=== PATIENT | female | born 1975 | race Caucasian/White ===

== ENCOUNTER 2024-06-02 12:17 | Inpatient (IN) | payer BC, SELFPAY ==
[2024-05-31 18:00] VITALS: BP 165/103
[2024-05-31 19:03] LABS: COVID-19 Antigen Negative (Negative)
[2024-05-31 19:38] VITALS: BMI 42.1
[2024-05-31 19:47] VITALS: BP 149/94
--- NOTE | 2024-05-31 20:09 | ED.GENMED ---
History of Present Illness
General
Chief Complaint: Fever
Source: patient
Exam Limitations: none
Time Seen by Provider: 05/31/24 19:52
History of Present Illness
History of Present Illness:
48-year-old female presents complaining of myalgias fatigue and fever since 3 days ago. Yesterday she noted redness starting around her right lower leg and since then its gotten worse. Her temperature at home has been as high as 102. She denies
cough or runny nose. She is not a diabetic. She was vomiting at the onset of her symptoms but has not been since but does note slight nausea and decreased appetite. No other complaints at this time
Past History
Past History
ED Past Medical History: Other (Kidney stone)
ED Past Surgical History:
Social History
Personal:
Phy Exam
Physical Exam
Physical Exam:
General: Well-appearing female no acute respiratory distress
HEENT: Normocephalic atraumatic
Heart: Tachycardic but regular
Lungs: Clear no wheeze
Abdomen is soft nontender nondistended
Skin: Erythema noted to the right lower leg ranging from the proximal to distal jaquez nearly circumferential. This is hot to the touch and tender without underlying fluctuance. No drainage noted.
Vascular: Palpable pulses dorsal aspect bilateral feet
Neurologic: Good sensation bilateral legs
Course
Orders/Labs/Results
Orders:
Orders
05/31/24 18:07
Electrocardiogram (*1) Urgent
Reason for Study: Shortness of Breath
05/31/24 18:08
EKG- Treatment ONCE
05/31/24 18:29
COVID-19 Antigen Urgent
Source: Nasal Swab
Influenza A+B Rapid Molecular Urgent
BRONSON Source: Nasal Swab
Specimen Description:
05/31/24 20:02
0.9% Sodium Chloride 1000 ml [Nss] 1,000 ml IV BOLUS
Venous Doppler Lwr Ext Rt [US Periph Venous LOWER Ext RT] Urgent
Comment:
Reason For Exam: swelling
05/31/24 20:37
Complete Blood Count/With Diff Urgent
Comprehensive Metabolic Panel Urgent
Lactic Acid Q4H
Comment: CANCEL 2nd LACTIC ACID IF 1st LACTIC ACID IS LESS THAN 2
Troponin I Urgent
Blood Culture Q30M
BRONSON Source: Blood/Venous
Specimen Description:
05/31/24 20:45
Blood Culture Q30M
BRONSON Source: Blood/Venous
Specimen Description:
05/31/24 21:18
CeFAZolin 2 grams IV Push NOW CeFAZolin 2 GRAM [Ancef] 2 grams in 10 ml IV NOW
06/01/24 00:15
Lactic Acid Q4H
Comment: CANCEL 2nd LACTIC ACID IF 1st LACTIC ACID IS LESS THAN 2
Abnormal Lab Results
05/31/24
20:37
WBC 14.1 H 10^3/uL
(4.8-10.8)
MCH 32.6 H pg
(27.0-31.0)
Abs Immat Gran (auto) 0.1 H 10^3/uL
(0-0.05)
Absolute Neuts (auto) 11.8 H 10^3/uL
(1.4-6.5)
Absolute Monos (auto) 0.9 H 10^3/uL
(0.1-0.6)
Immature Gran % 0.7 H %
(0-0.5)
Neutrophils % 83.4 H %
(42.2-75.2)
Lymphocytes % 9.2 L %
(20.5-51.1)
Sodium 131 L mmol/L
(135-145)
Chloride 96 L mmol/L
(98-107)
Carbon Dioxide 18 L mmol/L
(22-30)
Glucose 112 H mg/dl
(70-99)
Total Bilirubin 1.4 H mg/dl
(0.2-1.3)
05/31/24 20:37
05/31/24 20:37
Vital Signs
Initial and Last Documented VS:
Initial Vital Signs
Temp Pulse Resp BP Pulse Ox
99 F 118 26 165/103 99
05/31/24 18:00 05/31/24 18:00 05/31/24 18:00 05/31/24 18:00 05/31/24 18:00
Last Documented Vital Signs
Temp Pulse Resp BP Pulse Ox
99 F 102 31 149/94 96
05/31/24 18:00 05/31/24 19:47 05/31/24 19:47 05/31/24 19:47 05/31/24 19:38
MDM/Problems Addressed
Differential Diagnosis Includes:
Patient with fever myalgias and pain and redness to the right lower leg. Exam most consistent with cellulitis. Other items in differential could include DVT to the right leg venous ultrasound is pending. No palpable abscess.
Patient is tachycardic and she endorses a fever at home. Will check labs. Fluids ordered.
*Critical Care Note
Total Time (30-74mins, 75-104mins- exclusive of procedures): Not Applicable
Update Note
Update Note:
Labs reviewed shows white count of 14,000 venous ultrasound negative for DVT. Patient given fluids Ancef ordered. She is meeting SIRS criteria given fever leukocytosis and tachycardia. Will keep in hospital
ED Attending Note
-
Portions of this chart may have been created with voice recognition software.� Occasional wrong word or��sound alike� substitutions may have occurred due to the inherent limitations of voice recognition software.
Discharge Plan
Departure
Patient Disposition: Admit
Date of Disposition: 05/31/24
Time of Disposition: 21:18
Presentation/result/management discussed w/ accepting MD/DO: Hospitalist
Discharge Problem:
Acute cellulitis
Prescriptions:
No Action
oxycodone-acetaminophen 5 MG/325 MG tablet
1 tab PO Q4HPRN PRN (Reason: pain) Qty: 15 0RF
tamsulosin 0.4 MG capsule
0.4 mg PO DAILY Qty: 5 0RF
indomethacin 50 MG capsule
50 mg PO TID Qty: 15 1RF
Rx Instructions:
take with food
Interventions
Interventions:
*Risk Screen - Suicide Last Done: 05/31/24 18:00
*General Assessment Last Done: 05/31/24 18:00
*Neglect/Abuse Screening Last Done: 05/31/24 18:00
ED- Fall Risk Assessment Last Done: 05/31/24 19:38
*ED COVID-19 Vaccine History Last Done: 05/31/24 18:00
ED- Neurological Assessment Last Done: 05/31/24 19:38
ED-Skin Assessment Last Done: 05/31/24 19:38
Discharge Date and Time
Print Language: AMHARIC
[2024-05-31 20:45] LABS: % Basophils 0.2 % (0-2); % Eosinophils 0.1 % (0-6); % Immature Granulocytes 0.7 % (0-0.5); % Lymphocytes 9.2 % (20.5-51.1); % Monocytes 6.4 % (1.7-9.3); % Neutrophils 83.4 % (42.2-75.2); Absolute Immature Granulocytes 0.1 10^3/uL (0-0.05); Absolute Lymphocytes 1.3 10^3/uL (1.2-3.4); Absolute Monocytes 0.9 10^3/uL (0.1-0.6); Absolute Neutrophils 11.8 10^3/uL (1.4-6.5); Hematocrit 43.6 % (37.0-47.0); Hemoglobin 15.4 g/dL (12.0-16.0); Mean Corp Hgb Conc. 35.3 g/dL (33.0-37.0); Mean Corpuscular Hgb 32.6 pg (27.0-31.0); Mean Corpuscular Volume 92.4 fL (81.0-99.0); Mean Platelet Volume 10.3 fL (7.4-10.4); Nucleated Red Blood Cells % 0 %; Platelet Count 233 10^3/uL (130-400); Red Blood Cell Count 4.72 10^6/uL (4.20-5.40); Red Cell Dist. Width 12.3 % (11.5-14.5); White Blood Cell Count 14.1 10^3/uL (4.8-10.8)
[2024-05-31 20:57] LABS: Lactic Acid 1.3 mmol/L (0.7-2.0)
[2024-05-31 20:58] LABS: ALT (SGPT) 33 U/L (0-35); AST (SGOT) 27 U/L (14-36); Albumin 4.5 g/dl (3.5-5.0); Alkaline Phosphatase 107 U/L (38-126); Blood Urea Nitrogen 16 mg/dl (7-17); Calcium 9.5 mg/dl (8.4-10.2); Carbon Dioxide 18 mmol/L (22-30); Chloride 96 mmol/L (98-107); Estimated Creatinine Clearance 105 ml/min; Glucose 112 mg/dl (70-99); Potassium 3.6 mmol/L (3.5-5.1); Sodium 131 mmol/L (135-145); Total Bilirubin 1.4 mg/dl (0.2-1.3); Total Protein 7.8 g/dl (6.3-8.2); eGFR > 60.00
[2024-05-31 21:09] LABS: Troponin I < 0.012 ng/ml
[2024-05-31] MEDS: NSS 1000 IV (21:13)
[2024-05-31] MEDS: ANCEF 10 IV (21:36)
--- NOTE | 2024-05-31 22:21 | HPS.HSE ---
Addendum entered and electronically signed by Jesse Paul DO 05/31/24 23:58:
Patient seen and examined independently. Agree with findings and plan as set forth by MARIALUISA James.
Patient is a 48y F with PMH significant for obesity who presents to ED complaining of pain, swelling and redness in the RLE that she noted this AM. Patient states that she had fevers / chills and general malaise starting on Saturday. She denies
any injury, trauma, etc to the RLE. Patient noted some pain in the R lower leg last PM while in bed and this AM woke to note new redness and swelling. She presented to the ED for further evaluation. She does have very dry, cracked skin on both
feet with a sizeable skin defect at the base of the R great toe.
Ass:
RLE Cellulitis
Obesity
Plan:
Admit for further evaluation and treatment.
Continue IV Ancef and follow for clinical improvement.
Transition to PO regimen once improving.
Local care to feet / dry skin to prevent future episodes.
Original Note:
Family Physician
-
Family Physician: Angus Alberts
Chief Complaint
-
right lower leg swelling
History of Present Illness
Patient is a 48-year-old female with past medical history significant for hx kidney stone who presented to [facility] ED for evaluation of right lower leg swelling associated with fever. Patient reports Saturday she started not feeling well
and had muscle aches and fever. Over last two days she reports fever as high as 102. She did have associated nausea and vomiting. Patient stated last night when she was sleeping last night she woke with some discomfort in right leg, but did not look
at leg until today that has significant erythema, warm to touch and swollen. Patient denies cough, shortness of breath, chest pain, constipation, diarrhea or urinary symptoms.
Medical History
Past Medical History
Past Medical History: Reports Other
Additional Past Medical History:
hx kidney stone
Past Surgical History: Reports Other
Additional Past Surgical History:
lithotripsy
Social History
Tobacco: Smoker (smokes when out with friends )
Alcohol: Occasional
Drug: Marijuana (will use gummies occasionally )
Personal:
Living: With Family
Employment: Employed
Family History
Family History: Other (Mother: DM; Father: DM)
Allergies / Home Medications
Allergies reflects when Allergies were last updated in [facility].
Home Medications with original date entered in [facility]
Allergy/Medication List:
Allergies
Allergy/AdvReac Type Severity Reaction Status Date / Time
No Known Drug Allergies Allergy NONE Verified 12/12/11 03:48
Home Medications
[id number] carb-vit K 18 mg iron-400 mcg-500 mg tablet 1 tab PO DAILY 05/31/24
Review of Systems
-
History Source: Patient
Constitutional: Reports Fever
EENT: Reports No Symptoms
Respiratory: Reports No Symptoms
Cardiac: Reports No Symptoms
Abdomen/GI: Reports Nausea and Vomiting
: Reports No Symptoms
Musculoskeletal: Reports Other (RLE edema, erythema and warmth )
Skin: Reports No Symptoms
Neurological: Reports No Symptoms
Endocrine: Reports No Symptoms
Hematologic/Lymphatic: Reports No Symptoms
Psych: Reports No Symptoms
Physical Exam
Vital Signs
Vital Signs
Temp Pulse Resp BP Pulse Ox
99 F 102 31 149/94 96
05/31/24 18:00 05/31/24 19:47 05/31/24 19:47 05/31/24 19:47 05/31/24 19:38
Physical Exam
General: Well Developed, Well Nourished, No Apparent Distress, Comfortable, Conversant and Morbidly Obese
HEENT: NormoCephalic, Moist mucous membranes, Atraumatic, Sonoita Conjunctivae, Nose Appears Normal and Ears Appear Normal
Respiratory: Clear and Non Labored Respirations
Cardiac: S1/S2 and Regular Rhythm; No Murmur, Rub or Gallop
Breast: Deferred by me
GI: Soft, Non Tender and Normal Bowel Sounds; No Organomegaly
Rectal: Deferred by Provider
Genito-urinary: Deferred by me
Musculoskeletal: No Clubbing, No Cyanosis and Edema, Right Lower Extremity (associated with erythema and warm to touch )
Skin: No Rash
Neuro: Nonfocal/grossly intact
Psych: Calm and Intact Judgment/Insight
Laboratory Results
-
05/31/24 20:37
05/31/24 20:37
Laboratory Results
Lactic Acid 1.3 mmol/L (0.7-2.0) 05/31/24 20:37
Total Bilirubin 1.4 mg/dl (0.2-1.3) H 05/31/24 20:37
AST 27 U/L (14-36) 05/31/24 20:37
ALT 33 U/L (0-35) 05/31/24 20:37
Alkaline Phosphatase 107 U/L (38-126) 05/31/24 20:37
Troponin I < 0.012 ng/ml 05/31/24 20:37
Data Reviewed
-
Ultrasound: Report Reviewed by me (RLE: No sonographic evidence for right lower extremity deep venous thrombosis.)
Medical Tests (Nuc Med, Echo, EKG etc): Report Reviewed by me (EKG: SINUS TACHYCARDIA RIGHTWARD AXIS)
Lab Data: Labs Reviewed by me (WBC 14.1)
Impression/Plan
-
IMPRESSION/PLAN:
#cellulitis
WBC 14.1
RLE US: No sonographic evidence for right lower extremity deep venous thrombosis.
EKG: SINUS TACHYCARDIA
RIGHTWARD AXIS
Covid: negative
Influenza: negative
Blood Cx: pending
- Admit to med/surg
- IV antibiotics
- supportive care
#obesity
BMI 42.1
- affects all aspects of care
- encourage a balanced diet and increased exercise for goal of weight loss
#hx kidney stone
s/p lithotripsy
Code status: full code
DVT prophylaxis: lovenox sq
[2024-05-31 23:55] VITALS: BP 144/73
[2024-06-01 02:46] VITALS: BP 152/86; BMI 41.5
[2024-06-01] MEDS: TYLENOL 650 MG PO ×2 (03:42→14:38)
[2024-06-01] MEDS: ANCEF 10 IV ×3 (05:51→22:00)
[2024-06-01 07:14] LABS: Hematocrit 39.9 % (37.0-47.0); Mean Corp Hgb Conc. 35.1 g/dL (33.0-37.0); Mean Corpuscular Hgb 32.9 pg (27.0-31.0); Mean Corpuscular Volume 93.7 fL (81.0-99.0); Platelet Count 199 10^3/uL (130-400); Red Blood Cell Count 4.26 10^6/uL (4.20-5.40); Red Cell Dist. Width 12.5 % (11.5-14.5); White Blood Cell Count 12.4 10^3/uL (4.8-10.8)
[2024-06-01 07:16] VITALS: BP 136/81
[2024-06-01 07:57] LABS: Blood Urea Nitrogen 14 mg/dl (7-17); Calcium 8.8 mg/dl (8.4-10.2); Carbon Dioxide 17 mmol/L (22-30); Chloride 104 mmol/L (98-107); Estimated Creatinine Clearance 119 ml/min; Glucose 113 mg/dl (70-99); Potassium 3.3 mmol/L (3.5-5.1); Sodium 132 mmol/L (135-145); eGFR > 60.00
[2024-06-01] MEDS: THERAGRAN 1 TABLET PO (08:29)
--- NOTE | 2024-06-01 08:54 | W.PN.HOSP.TC ---
Today's Communication/Plan
-
IV antibiotic
Assessment / Plan
Assessment / Plan
Physical exam:
General: Well Developed, Well Nourished and No Apparent Distress
HEENT: Normocephalic, Atraumatic and Moist Mucous Membranes
Respiratory: Clear to Auscultation; Negative Wheezes, Rales or Rhonchi
Cardiac: Regular Rhythm and S1/S2
GI: Soft, Nontender and Nondistended
Musculoskeletal: No Clubbing, No Cyanosis
Skin: Right lower extremity erythema, warmth, tenderness
Neuro: Awake, Alert and Oriented
Psych: Calm
A/P:
Right lower extremity cellulitis:
Continue IV antibiotic
Blood cultures no growth
Elevate lower extremity
Tinea pedis:
Antifungal cream
Obesity:
Lifestyle changes modification
DVT prophylaxis:
Lovenox SQ
CODE STATUS:
Full code
Anticipated Discharge: 24 - 48 hours
Subjective/Interval History
-
Date of Service: June 01, 2024
Patient with erythema right lower extremity and discomfort.
Objective Data
-
Labs:
Laboratory Results
05/31/24 06/01/24
20:37 06:51
WBC 12.4 H
Hgb 14.0
Hct 39.9
Plt Count 199
Sodium 131 L 132 L
Potassium 3.6 3.3 L
Chloride 96 L 104
Carbon Dioxide 18 L 17 L
BUN 16 14
Creatinine 0.8 0.7
Glucose 112 H 113 H
Calcium 9.5 8.8
Total Bilirubin 1.4 H
AST 27
ALT 33
Alkaline Phosphatase 107
Vital Signs:
Vital Signs
Temp Pulse Resp BP Pulse Ox
98.7 F 76 16 136/81 97
06/01/24 07:16 06/01/24 07:16 06/01/24 07:16 06/01/24 07:16 06/01/24 07:16
I&O
05/31/24 06/01/24 06/02/24
06:59 06:59 06:59
Intake Total 0 / 0
Balance 0 / 0
[2024-06-01] MEDS: KCL 40 MEQ PO (09:15)
[2024-06-01] MEDS: LOTRIMIN 1% CREAM 1 APPLIC TOPICAL ×2 (11:04→22:00)
--- NOTE | 2024-06-01 11:39 | CM ---
Pt seen bedside. Initial assessment completed. Admitted for right lower leg swelling.
Pt reports that she lives w/ spouse and daughter in a 3 story town home- 2 small steps to enter. Pt is independent w/ ambulating and ADLs, no DME required. 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
No SNF/VN/PT hx. No current OP or home services at this time.
Address, point of contact and insurance verified
PCP: Dr. Angus Alberts
Pharmacy: [facility]
Pt is admitted as OBS, OOBS form reviewed, pt given copy, copy placed on chart
Plan: Home; no needs likely
[2024-06-01 15:56] VITALS: BP 137/79
[2024-06-01] MEDS: LOVENOX 40 MG SC (17:49)
[2024-06-01] MEDS: FLUSH (NSS) 2 FLUSH IV (22:01)
[2024-06-01 23:00] VITALS: BP 157/86
[2024-06-02] MEDS: ANCEF 10 IV ×3 (05:40→22:00)
[2024-06-02] MEDS: FLUSH (NSS) 2 FLUSH IV (05:40)
[2024-06-02 07:55] LABS: % Basophils 0.4 % (0-2); % Eosinophils 0.7 % (0-6); % Immature Granulocytes 0.7 % (0-0.5); % Lymphocytes 10.6 % (20.5-51.1); % Monocytes 9.9 % (1.7-9.3); % Neutrophils 77.7 % (42.2-75.2); Absolute Basophils 0.1 10^3/uL (0-0.2); Absolute Eosinophils 0.1 10^3/uL (0-0.7); Absolute Immature Granulocytes 0.1 10^3/uL (0-0.05); Absolute Lymphocytes 1.5 10^3/uL (1.2-3.4); Absolute Monocytes 1.4 10^3/uL (0.1-0.6); Hematocrit 40.7 % (37.0-47.0); Hemoglobin 13.9 g/dL (12.0-16.0); Mean Corp Hgb Conc. 34.2 g/dL (33.0-37.0); Mean Corpuscular Hgb 32.8 pg (27.0-31.0); Mean Platelet Volume 9.9 fL (7.4-10.4); Nucleated Red Blood Cells % 0 %; Platelet Count 243 10^3/uL (130-400); Red Blood Cell Count 4.24 10^6/uL (4.20-5.40); Red Cell Dist. Width 12.8 % (11.5-14.5); White Blood Cell Count 14.1 10^3/uL (4.8-10.8)
[2024-06-02 08:13] VITALS: BP 163/98
[2024-06-02 08:38] LABS: Blood Urea Nitrogen 16 mg/dl (7-17); Calcium 9.1 mg/dl (8.4-10.2); Carbon Dioxide 17 mmol/L (22-30); Chloride 103 mmol/L (98-107); Estimated Creatinine Clearance > 125 ml/min; Glucose 102 mg/dl (70-99); Potassium 3.6 mmol/L (3.5-5.1); Sodium 135 mmol/L (135-145); eGFR > 60.00
--- NOTE | 2024-06-02 08:51 | W.PN.HOSP.TC ---
Today's Communication/Plan
-
IV antibiotic
Assessment / Plan
Assessment / Plan
Physical exam:
General: Well Developed, Well Nourished and No Apparent Distress
HEENT: Normocephalic, Atraumatic and Moist Mucous Membranes
Respiratory: Clear to Auscultation; Negative Wheezes, Rales or Rhonchi
Cardiac: Regular Rhythm and S1/S2
GI: Soft, Nontender and Nondistended
Musculoskeletal: No Clubbing, No Cyanosis
Skin: Right lower extremity erythema, warmth, tenderness
Neuro: Awake, Alert and Oriented
Psych: Calm
A/P:
Right lower extremity cellulitis:
Continue IV antibiotics-needs more time to start seeing progress
Blood cultures no growth
Wild erythema today
Doppler negative for DVT
Elevate lower extremity
Tinea pedis:
Antifungal cream
Obesity:
Lifestyle changes modification
DVT prophylaxis:
Lovenox SQ
CODE STATUS:
Full code
Anticipated Discharge: > 48 hours
Subjective/Interval History
-
Date of Service: June 02, 2024
Patient erythema yet to see any improvement. Still warm and tender on her right leg. Afebrile
Objective Data
-
Labs:
Laboratory Results
06/02/24
07:23
WBC 14.1 H
Hgb 13.9
Hct 40.7
Plt Count 243 D
Sodium 135
Potassium 3.6
Chloride 103
Carbon Dioxide 17 L
BUN 16
Creatinine 0.5 L
Glucose 102 H
Calcium 9.1
Vital Signs:
Vital Signs
Temp Pulse Resp BP Pulse Ox
97.7 F 78 18 163/98 98
06/02/24 08:13 06/02/24 08:13 06/02/24 08:13 06/02/24 08:13 06/02/24 08:13
I&O
06/01/24 06/02/24 06/03/24
06:59 06:59 06:59
Intake Total 0 / 0 480 / 480
Balance 0 / 0 480 / 480
[2024-06-02] MEDS: THERAGRAN 1 TABLET PO (09:30)
[2024-06-02] MEDS: LOTRIMIN 1% CREAM 1 APPLIC TOPICAL ×2 (09:30→20:53)
[2024-06-02 16:08] VITALS: BP 138/84
[2024-06-02] MEDS: LOVENOX 40 MG SC (18:32)
[2024-06-02] MEDS: TYLENOL 650 MG PO (20:54)
[2024-06-02 23:10] VITALS: BP 148/81
[2024-06-03] MEDS: ANCEF 10 IV ×3 (05:51→20:21)
[2024-06-03 07:27] VITALS: BP 145/86
[2024-06-03 07:36] LABS: % Basophils 0.3 % (0-2); % Eosinophils 2.4 % (0-6); % Immature Granulocytes 0.9 % (0-0.5); % Lymphocytes 11.5 % (20.5-51.1); % Neutrophils 76.9 % (42.2-75.2); Absolute Eosinophils 0.3 10^3/uL (0-0.7); Absolute Immature Granulocytes 0.1 10^3/uL (0-0.05); Absolute Lymphocytes 1.5 10^3/uL (1.2-3.4); Hematocrit 39.1 % (37.0-47.0); Hemoglobin 13.6 g/dL (12.0-16.0); Mean Corp Hgb Conc. 34.8 g/dL (33.0-37.0); Mean Corpuscular Hgb 32.9 pg (27.0-31.0); Mean Corpuscular Volume 94.7 fL (81.0-99.0); Mean Platelet Volume 9.7 fL (7.4-10.4); Nucleated Red Blood Cells % 0 %; Platelet Count 262 10^3/uL (130-400); Red Blood Cell Count 4.13 10^6/uL (4.20-5.40); Red Cell Dist. Width 12.7 % (11.5-14.5)
[2024-06-03] MEDS: THERAGRAN 1 TABLET PO (08:36)
[2024-06-03] MEDS: LOTRIMIN 1% CREAM 1 APPLIC TOPICAL ×2 (08:38→20:24)
--- NOTE | 2024-06-03 08:49 | W.PN.HOSP.TC ---
Addendum entered and electronically signed by Anuel Goldberg MD 06/03/24 14:45:
Sepsis due to RLE cellulitis
Hyponatremia
Original Note:
Today's Communication/Plan
-
Continue IV antibiotics
Assessment / Plan
Assessment / Plan
Physical exam:
General: Well Developed, Well Nourished and No Apparent Distress
HEENT: Normocephalic, Atraumatic and Moist Mucous Membranes
Respiratory: Clear to Auscultation; Negative Wheezes, Rales or Rhonchi
Cardiac: Regular Rhythm and S1/S2
GI: Soft, Nontender and Nondistended
Musculoskeletal: No Clubbing, No Cyanosis
Skin: Right lower extremity erythema, warmth, tenderness
Neuro: Awake, Alert and Oriented
Psych: Calm
A/P:
Right lower extremity cellulitis:
Continue IV antibiotics-mixed signal with slight improvement and slight worsening so will add IV Vanco today.
Blood cultures no growth
Marked erythema yesterday and there is slight spread beyond border
Doppler negative for DVT
Elevate lower extremity
Tinea pedis:
Antifungal cream
Obesity:
Lifestyle changes modification
DVT prophylaxis:
Lovenox SQ
CODE STATUS:
Full code
Anticipated Discharge: 24 - 48 hours
Subjective/Interval History
-
Date of Service: June 03, 2024
Patient erythema if anything slightly better.
Objective Data
-
Labs:
Laboratory Results
06/03/24
07:23
WBC 13.0 H
Hgb 13.6
Hct 39.1
Plt Count 262
Sodium Pending
Potassium Pending
Chloride Pending
Carbon Dioxide Pending
BUN Pending
Creatinine Pending
Glucose Pending
Calcium Pending
Vital Signs:
Vital Signs
Temp Pulse Resp BP Pulse Ox
98.5 F 75 18 148/81 98
06/02/24 23:10 06/02/24 23:10 06/02/24 23:10 06/02/24 23:10 06/02/24 23:10
I&O
06/02/24 06/03/24 06/04/24
06:59 06:59 06:59
Intake Total 480 / 480 240 / 240
Balance 480 / 480 240 / 240
[2024-06-03 09:54] LABS: Blood Urea Nitrogen 22 mg/dl (7-17); Calcium 9.2 mg/dl (8.4-10.2); Carbon Dioxide 21 mmol/L (22-30); Chloride 103 mmol/L (98-107); Estimated Creatinine Clearance > 125 ml/min; Glucose 92 mg/dl (70-99); Potassium 3.7 mmol/L (3.5-5.1); Sodium 136 mmol/L (135-145); eGFR > 60.00
--- NOTE | 2024-06-03 11:50 | PN.CDI ---
CDI
- -
CDI:
Physician Documentation Request
Admit Date: 06/02/24 12:17
Dear Doctor Yusuf,
Please review the following and provide your response in the progress notes.
Clinical Indicators:
- Patient admit for RLE cellulitis
- On admission: WBC 14.1, HR 100-110s, RR 20s
- 1L IVF
- IV abx ancef
Please clarify which of the following most accurately describes the status of the patient's infection:
Sepsis due to RLE cellulitis
Localized Infection Only, Without Systemic Illness - RLE cellulitis
Other
Use of terms such as suspected, likely, concern for, or probable (associated with a specific diagnosis that is being evaluated, monitored, or treated as if it exists) are acceptable and can be coded in the inpatient setting, when documented at the
time of discharge.
Thank you,
Jessee Ontiveros RN
CDI Specialist
Please use your independent medical judgment in providing your response.
--- NOTE | 2024-06-03 11:54 | PN.CDI ---
CDI
- -
CDI:
Physician Documentation Request
Admit Date: 06/02/24 12:17
Dear Doctor,
Please review the following and provide your response in the progress notes.
Clinical Indicators:
- Patient admit for cellulitis
- Sodium levels:
Laboratory Tests
05/31/24 06/01/24 06/02/24
20:37 06:51 07:23
Sodium 131 L 132 L 135
Please provide a diagnosis for the above lab values that were monitored and treatment rendered:
Hyponatremia
Clinically insignificant abnormal lab value
Other (please specify)
Use of terms such as suspected, likely, concern for, or probable (associated with a specific diagnosis that is being evaluated, monitored, or treated as if it exists) are acceptable and can be coded in the inpatient setting, when documented at the
time of discharge.
Thank you,
Jessee Ontiveros RN
CDI Specialist
Please use your independent medical judgment in providing your response.
[2024-06-03] MEDS: COLACE 100 MG PO ×2 (13:02→20:21)
--- NOTE | 2024-06-03 13:35 | PHA.VAN.IN ---
Assessment
- Assessment
Renal Function: Appears similar to baseline
Concomitant Antimicrobials: cefazolin
AUC Dosing Plan
- Dosing Variables
Dosing Weight (kg): 109
Dosing CrCl (ml/min): 125
Vd coefficient (L/kg): 0.6
- Empiric Dosing
Initial / Loading Dose: 2000mg - administration pending
Maintenance Regimen: Vanc 1500mg Q12H starting 06/04 599
Estimated AUC (mcg*h/mL): 459
Estimated Peak (mcg*h/mL): 31.6
Estimated Trough (mcg/ml): 10.1
Estimated Half Life (H): 6.4
- Monitoring
No levels ordered at this time: consider levels in next few days
Pharmacokinetics Vancomycin I
- -
Patient Age: 48
Patient Sex: Female
Vancomycin Day #: 1
Indication: Skin And Soft Tissue
Requesting Provider: Dr. Goldberg
Pertinent Antimicrobial Allergies:
NKDA
Height / Weight:
Height 5 ft 4 in
Actual Weight 109.571 kg
Pertinent Past Medical History: BMI ~41.5
- Vital Signs / Lab Results
Temp Pulse Resp BP Pulse Ox
98.6 F 79 18 145/86 98
06/03/24 07:27 06/03/24 07:27 06/03/24 07:27 06/03/24 07:27 06/03/24 07:27
Lab Results - Hematology
05/31/24 06/01/24 06/02/24
20:37 06:51 07:23
WBC 14.1 H 12.4 H 14.1 H
06/03/24
07:23
WBC 13.0 H
Lab Results - Chemistry
05/31/24 06/01/24 06/02/24
20:37 06:51 07:23
BUN 16 14 16
Creatinine 0.8 0.7 0.5 L
Estimated Creat Clear 105 119 > 125
Albumin 4.5
06/03/24
07:23
BUN 22 H
Creatinine 0.5 L
Estimated Creat Clear > 125
Albumin
05/31/24 06/01/24
20:37 00:15
Lactic Acid 1.3 Cancelled
Microbiology Results
05/31/24 21:55 Blood Culture - Preliminary
Blood/Venous No Growth in 48 hours- Final report to follow
05/31/24 20:37 Blood Culture - Preliminary
Blood/Venous No Growth in 48 hours- Final report to follow
[2024-06-03] MEDS: VANCOCIN 540 MG IV (14:13)
[2024-06-03] MEDS: MIRALAX PO (14:21)
[2024-06-03 15:16] VITALS: BP 128/75
[2024-06-03] MEDS: BENADRYL 25 MG IV (16:09)
--- NOTE | 2024-06-03 16:13 | PTCARENOTE ---
Pt. with c/o itching during Vancomycin infusion. Dr. Goldberg made aware. IV Vancomycin okay to continue per Dr. Goldberg. IV Benadryl given as ordered. Will continue to monitor pt.
[2024-06-03] MEDS: LOVENOX 40 MG SC (17:37)
[2024-06-03 23:52] VITALS: BP 123/78
[2024-06-04] MEDS: BENADRYL 25 MG IV ×2 (04:55→17:25)
[2024-06-04] MEDS: ANCEF 10 IV ×3 (05:05→21:18)
[2024-06-04] MEDS: VANCOCIN 530 MG IV ×2 (06:07→18:00)
[2024-06-04 07:45] LABS: % Basophils 0.6 % (0-2); % Eosinophils 3.6 % (0-6); % Immature Granulocytes 1.6 % (0-0.5); % Lymphocytes 18.6 % (20.5-51.1); % Monocytes 8.8 % (1.7-9.3); % Neutrophils 66.8 % (42.2-75.2); Absolute Basophils 0.1 10^3/uL (0-0.2); Absolute Eosinophils 0.4 10^3/uL (0-0.7); Absolute Immature Granulocytes 0.2 10^3/uL (0-0.05); Absolute Lymphocytes 2.2 10^3/uL (1.2-3.4); Absolute Neutrophils 7.7 10^3/uL (1.4-6.5); Hematocrit 37.6 % (37.0-47.0); Hemoglobin 12.9 g/dL (12.0-16.0); Mean Corp Hgb Conc. 34.3 g/dL (33.0-37.0); Mean Corpuscular Hgb 32.7 pg (27.0-31.0); Mean Corpuscular Volume 95.2 fL (81.0-99.0); Mean Platelet Volume 9.9 fL (7.4-10.4); Nucleated Red Blood Cells % 0 %; Platelet Count 305 10^3/uL (130-400); Red Blood Cell Count 3.95 10^6/uL (4.20-5.40); Red Cell Dist. Width 12.6 % (11.5-14.5); White Blood Cell Count 11.6 10^3/uL (4.8-10.8)
[2024-06-04 08:17] VITALS: BP 158/92
--- NOTE | 2024-06-04 09:13 | W.PN.HOSP.TC ---
Today's Communication/Plan
-
Continue IV antibiotics
Assessment / Plan
Assessment / Plan
Physical exam:
General: Well Developed, Well Nourished and No Apparent Distress
HEENT: Normocephalic, Atraumatic and Moist Mucous Membranes
Respiratory: Clear to Auscultation; Negative Wheezes, Rales or Rhonchi
Cardiac: Regular Rhythm and S1/S2
GI: Soft, Nontender and Nondistended
Musculoskeletal: No Clubbing, No Cyanosis
Skin: Right lower extremity erythema, warmth, tenderness
Neuro: Awake, Alert and Oriented
Psych: Calm
A/P:
Right lower extremity cellulitis:
Continue IV cefazolin and vancomycin
Blood cultures no growth
Follow-up erythema
Doppler negative for DVT
Elevate lower extremity
WBC 14.1--> 11.6
Discussed with at bedside
Tinea pedis:
Antifungal cream
Obesity:
Lifestyle changes modification
DVT prophylaxis:
Lovenox SQ
CODE STATUS:
Full code
Anticipated Discharge: Within 24 hours
Subjective/Interval History
-
Date of Service: June 04, 2024
Patient erythema now starting to show improvement. Afebrile
Objective Data
-
Labs:
Laboratory Results
06/04/24
06:24
WBC 11.6 H
Hgb 12.9
Hct 37.6
Plt Count 305
Sodium Pending
Potassium Pending
Chloride Pending
Carbon Dioxide Pending
BUN Pending
Creatinine Pending
Glucose Pending
Calcium Pending
Vital Signs:
Vital Signs
Temp Pulse Resp BP Pulse Ox
97.7 F 79 18 158/92 100
06/04/24 08:17 06/04/24 08:17 06/04/24 08:17 06/04/24 08:17 06/04/24 08:17
I&O
06/03/24 06/04/24 06/05/24
06:59 06:59 06:59
Intake Total 240 / 240 720 / 720
Balance 240 / 240 720 / 720
[2024-06-04 09:20] LABS: Blood Urea Nitrogen 18 mg/dl (7-17); Calcium 8.7 mg/dl (8.4-10.2); Carbon Dioxide 22 mmol/L (22-30); Chloride 105 mmol/L (98-107); Estimated Creatinine Clearance > 125 ml/min; Glucose 94 mg/dl (70-99); Potassium 3.6 mmol/L (3.5-5.1); Sodium 137 mmol/L (135-145); eGFR > 60.00
[2024-06-04] MEDS: COLACE 100 MG PO ×2 (09:24→20:58)
[2024-06-04] MEDS: THERAGRAN 1 TABLET PO (09:24)
[2024-06-04] MEDS: LOTRIMIN 1% CREAM 1 APPLIC TOPICAL ×2 (09:24→20:58)
[2024-06-04] MEDS: MIRALAX 17 GRAMS PO (09:29)
--- NOTE | 2024-06-04 09:43 | PHA.VAN.FU ---
Vancomycin Assessment / Plan
- Assessment
Renal Function: Stable
WBC's are: Trending Down
In the past 24 hrs, patient has been: Afebrile
Concomitant Antimicrobials: cefazolin
- Dosing Plan
Continue: Vanc 1500mg Q12H
- Monitoring Plan
No level(s) ordered at this time: consider levels in next few days
- Follow Up
Pharmacy will continue to follow.
Vancomycin Follow UP
- -
Patient Age: 48
Patient Sex: Female
Vancomycin Day #: 2
Indication: Skin And Soft Tissue
Requesting Provider: Dr. Goldberg
Pertinent Antimicrobial Allergies:
NKDA
Height / Weight:
Height 5 ft 4 in
Actual Weight 109.571 kg
Pertinent Past Medical History: BMI ~41.5
- Vital Signs / Lab Results
Temp Pulse Resp BP Pulse Ox
97.7 F 79 18 158/92 100
06/04/24 08:17 06/04/24 08:17 06/04/24 08:17 06/04/24 08:17 06/04/24 08:17
Lab Results - Hematology
06/02/24 06/03/24 06/04/24
07:23 07:23 06:24
WBC 14.1 H 13.0 H 11.6 H
Lab Results - Chemistry
06/02/24 06/03/24 06/04/24
07:23 07:23 06:24
BUN 16 22 H 18 H
Creatinine 0.5 L 0.5 L 0.6
Estimated Creat Clear > 125 > 125 > 125
Microbiology Results
05/31/24 21:55 Blood Culture - Preliminary
Blood/Venous No Growth in 72 hours- Final report to follow
05/31/24 20:37 Blood Culture - Preliminary
Blood/Venous No Growth in 72 hours- Final report to follow
--- NOTE | 2024-06-04 13:32 | CM ---
Chart reviewed for d/c planning and hospital course updates.
Cont IV abx.
Plan: Home; no needs
[2024-06-04 15:56] VITALS: BP 141/78
[2024-06-04] MEDS: LOVENOX 40 MG SC (17:25)
[2024-06-04 23:43] VITALS: BP 146/84
[2024-06-05] MEDS: BENADRYL 25 MG IV (05:31)
[2024-06-05] MEDS: ANCEF 10 IV ×2 (06:27→13:19)
[2024-06-05] MEDS: VANCOCIN 530 MG IV (06:27)
[2024-06-05 07:01] VITALS: BP 142/91
[2024-06-05 08:05] LABS: % Basophils 0.9 % (0-2); % Eosinophils 5.6 % (0-6); % Immature Granulocytes 1.9 % (0-0.5); % Lymphocytes 23.5 % (20.5-51.1); % Monocytes 6.4 % (1.7-9.3); % Neutrophils 61.7 % (42.2-75.2); Absolute Basophils 0.1 10^3/uL (0-0.2); Absolute Eosinophils 0.5 10^3/uL (0-0.7); Absolute Immature Granulocytes 0.2 10^3/uL (0-0.05); Absolute Lymphocytes 2.1 10^3/uL (1.2-3.4); Absolute Monocytes 0.6 10^3/uL (0.1-0.6); Absolute Neutrophils 5.6 10^3/uL (1.4-6.5); Hematocrit 36.4 % (37.0-47.0); Hemoglobin 12.5 g/dL (12.0-16.0); Mean Corp Hgb Conc. 34.3 g/dL (33.0-37.0); Mean Corpuscular Hgb 32.7 pg (27.0-31.0); Mean Corpuscular Volume 95.3 fL (81.0-99.0); Mean Platelet Volume 9.9 fL (7.4-10.4); Nucleated Red Blood Cells % 0 %; Platelet Count 324 10^3/uL (130-400); Red Blood Cell Count 3.82 10^6/uL (4.20-5.40); Red Cell Dist. Width 12.8 % (11.5-14.5); White Blood Cell Count 9.1 10^3/uL (4.8-10.8)
[2024-06-05 08:47] LABS: Blood Urea Nitrogen 18 mg/dl (7-17); Calcium 8.9 mg/dl (8.4-10.2); Carbon Dioxide 26 mmol/L (22-30); Chloride 105 mmol/L (98-107); Estimated Creatinine Clearance > 125 ml/min; Glucose 88 mg/dl (70-99); Sodium 139 mmol/L (135-145); eGFR > 60.00
[2024-06-05 08:56] LABS: Potassium 3.7 mmol/L (3.5-5.1)
--- NOTE | 2024-06-05 09:04 | W.PN.HOSP.TC ---
Today's Communication/Plan
-
Discharge planning
Assessment / Plan
Assessment / Plan
Physical exam:
General: Well Developed, Well Nourished and No Apparent Distress
HEENT: Normocephalic, Atraumatic and Moist Mucous Membranes
Respiratory: Clear to Auscultation; Negative Wheezes, Rales or Rhonchi
Cardiac: Regular Rhythm and S1/S2
GI: Soft, Nontender and Nondistended
Musculoskeletal: No Clubbing, No Cyanosis
Skin: Right lower extremity erythema improving, less warmth and tenderness
Neuro: Awake, Alert and Oriented
Psych: Calm
A/P:
Right lower extremity cellulitis:
Continue IV cefazolin and vancomycin and switch to oral today
Blood cultures no growth
Follow-up erythema
Doppler negative for DVT
Elevate lower extremity
WBC 14.1--> 9.1
Discussed with at bedside yesterday
Plan to discharge today
Tinea pedis:
Antifungal cream
Obesity:
Lifestyle changes modification
DVT prophylaxis:
Lovenox SQ
CODE STATUS:
Full code
Anticipated Discharge: Today
Subjective/Interval History
-
Date of Service: June 05, 2024
Patient doing better today. Afebrile
Objective Data
-
Labs:
Laboratory Results
06/05/24
06:40
WBC 9.1
Hgb 12.5
Hct 36.4 L
Plt Count 324
Sodium 139
Potassium 3.7
Chloride 105
Carbon Dioxide 26
BUN 18 H
Creatinine 0.6
Glucose 88
Calcium 8.9
Vital Signs:
Vital Signs
Temp Pulse Resp BP Pulse Ox
97.9 F 73 18 142/91 100
06/05/24 07:01 06/05/24 07:01 06/05/24 07:01 06/05/24 07:01 06/05/24 07:01
I&O
06/04/24 06/05/24 06/06/24
06:59 06:59 06:59
Intake Total 720 / 720 1680 / 1680
Balance 720 / 720 1680 / 1680
--- NOTE | 2024-06-05 10:11 | PHA.VAN.FU ---
Vancomycin Assessment / Plan
- Assessment
Renal Function: Stable
WBC's are: Trending Down
In the past 24 hrs, patient has been: Afebrile
Concomitant Antimicrobials: Cefazolin 2gm Q8H
- Dosing Plan
Continue: 1500mg Q12H
- Monitoring Plan
No level(s) ordered at this time: Consider levels in next few days
- Follow Up
Pharmacy will continue to follow.
Vancomycin Follow UP
- -
Patient Age: 48
Patient Sex: Female
Vancomycin Day #: 3
Indication: Skin And Soft Tissue
Requesting Provider: Dr. Goldberg
Pertinent Antimicrobial Allergies:
NKDA
Height / Weight:
Height 5 ft 4 in
Actual Weight 109.571 kg
Pertinent Past Medical History: BMI ~41.5
- Vital Signs / Lab Results
Temp Pulse Resp BP Pulse Ox
97.9 F 73 18 142/91 100
06/05/24 07:01 06/05/24 07:01 06/05/24 07:01 06/05/24 07:01 06/05/24 07:01
Lab Results - Hematology
06/03/24 06/04/24 06/05/24
07:23 06:24 06:40
WBC 13.0 H 11.6 H 9.1
Lab Results - Chemistry
06/03/24 06/04/24 06/05/24
07:23 06:24 06:40
BUN 22 H 18 H 18 H
Creatinine 0.5 L 0.6 0.6
Estimated Creat Clear > 125 > 125 > 125
Microbiology Results
05/31/24 21:55 Blood Culture - Preliminary
Blood/Venous No Growth in 4 days- Final report to follow
05/31/24 20:37 Blood Culture - Preliminary
Blood/Venous No Growth in 4 days- Final report to follow
[2024-06-05] MEDS: THERAGRAN 1 TABLET PO (10:13)
[2024-06-05] MEDS: LOTRIMIN 1% CREAM 1 APPLIC TOPICAL (10:13)
[2024-06-05] MEDS: COLACE 100 MG PO (10:13)
[2024-06-05] MEDS: MIRALAX PO (10:13)
--- NOTE | 2024-06-05 11:07 | CM ---
Patient seen at bedside.
chart reviewed
IMM n/a
PLAN: home, no needs when medically stable
to transport
--- NOTE | 2024-06-05 12:40 | W.DCSUMMARY ---
Discharge Summary
Discharge Data
Date of Admission: 06/02/24
Date of Discharge: 06/05/24
-
Pending Results: No
Hospital Course
Patient 48 years female came into the hospital right lower extremity cellulitis. She was placed on IV cefazolin and her cellulitis was difficult to treat and IV vancomycin was added. After the addition of antibiotics patient did started to
improve. She has remained afebrile. Her cellulitis improved. She will be kept on a prolonged course of antibiotic to cover for presumed strep and community-acquired MRSA with a combination of Keflex and doxycycline. She was also treated for her
tinea pedis. She has been recommended to continue elevation of her leg and also compression stockings as outpatient to alleviate chronic edema. No other events were noticed.
Discharge duration: 35-minutes
Discharge Plan
-
Patient Disposition: Home (Routine Discharge)
Discharge Diagnosis/Procedures: Cellulitis right lower extremity. Leukocytosis. Tinea pedis.
Diet: Regular
Activity: As tolerated
Additional Activity: Continue elevation of right lower extremity as much as possible. Consider compression stockings as outpatient.
Blood Work: Please PCP to order CBC, BMP within 1 week
Stand Alone Forms: Return to Work
Referrals:
Angus Alberts MD [Family Provider] - in less than 1 week
Prescriptions:
New
cephalexin 500 mg capsule
500 mg PO QID 14 Days Qty: 56 0RF
doxycycline hyclate 100 mg capsule
100 mg PO BID 14 Days Qty: 28 0RF
Saccharomyces boulardii [Florastor] 250 mg capsule
250 mg PO BID Qty: 14 0RF
clotrimazole 1 % cream
1 applic topical BID Qty: 15 0RF
acetaminophen [Tylenol] 325 mg tablet
650 mg PO Q4H PRN (Reason: Pain) Qty: 20 0RF
Continued
hn-so-yapb-FA-Ca carb-vit K 18 mg iron-400 mcg-500 mg Tablet
1 tab PO DAILY
Discharge Orders:
Discharge Patient (As Directed); Ordered 06/05/24
Ordered By: Anuel Goldberg
Discharge Date and Time
Discharge Date/Time: 06/05/24 14:35
Print Language: KENYAN
[2024-06-05] MEDS: FLUSH (NSS) 2 FLUSH IV (13:19)
[2024-06-05] MEDS: AFLURIA (36 mos+) 2024-2025 FORMULA 0.5 ML IM (13:37)
[2024-06-05 13:57] VITALS: BP 152/97
== END 2024-06-05 14:35 | disposition home or self-care (01) | DRG 872 ==
LOC: 4 EAST ACU 12:17
PROVIDERS: Emergency Medicine; Nurse Practitioner Family; Physician Assistant; ADMITTING PHYSICIAN Hospitalist; ATTENDING PHYSICIAN Hospitalist; EMERGENCY PHYSICIAN Emergency Medicine; FAMILY PHYSICIAN Family Medicine
DX: A41.9 Sepsis, unspecified organism (principal); L03.115 Cellulitis of right lower limb; Z68.41 Body mass index [BMI] 40.0-44.9, adult; E87.1 Hypo-osmolality and hyponatremia; E66.9 Obesity, unspecified; B35.3 Tinea pedis; F17.200 Nicotine dependence, unspecified, uncomplicated; Z11.52 Encounter for screening for COVID-19
CPT/HCPCS: 80048; 80053; 83605; 84484; 85025; 85027; 87040; 87502; 87811; 90686; 93005; 93971; 96374; 99285; G0008